=== PATIENT | male | born 1990 ===

== ENCOUNTER 2022-07-02 15:29 | Emergency (ER) | payer OTHER ==
[2022-07-02] MEDS ORDERED: Lactated Ringers 1,000 ML IV SCH (16:00)
[2022-07-02 17:43] LABS: CARBON DIOXIDE,CO2 27.7 mmol/L (21.0-32.0)
[2022-07-02] MEDS ORDERED: Iopamidol 755 Mg/ML 100 ML Bottle IVPUSH ONE (19:09)
[2022-07-02] MEDS ORDERED: Ibuprofen 400 MG Tab PO ONE (20:05)
[2022-07-02] MEDS ORDERED: Acetaminophen 325 MG Tab PO ONE (20:05)
== END 2022-07-02 20:59 | disposition home or self-care (01) ==
LOC: MW.ED 15:29
DX: M54.50 Low back pain, unspecified (principal); W19.XXXA Unspecified fall, initial encounter
CPT/HCPCS: 36415; 70450; 71260; 72125; 74177; 80053; 82550; 99284; A9270; J7120; Q9967